=== PATIENT | female | born 2000 ===

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

== ENCOUNTER 2020-05-27 11:14 | Observation (INO) | payer OTHER, SELFPAY ==
[~2020-05-27] VITALS: Ht 162.6 cm; Wt 80.0 kg
--- NOTE | 2020-05-27 11:58 | NUR ---
DIRECT ADMIT PATIENT DIRECT ADMIT TO UNIT AT 1130. ALERT AND ORIENTED. ORIENTED PATIENT TO ROOM, CALL LIGHT, RAPID RESPONSE. PATIENT REPORTS ABD PAIN 4/10 AND INCREASED WITH MOVEMENT AND PALPATION. DENIES OTHER SYMPTOMS. NON-SLIP SOCKS APPLIED. PATIENT STATES HER MOTHER IS COMING AND BRINGING A FEW PERSONAL BELONGINGS. PATIENT NPO BUT NO ORDERS IN CHART AT THIS TIME.
[2020-05-27] MEDS ORDERED: NEXPLANON68 MG (12:29)
--- NOTE | 2020-05-27 18:39 | NUR ---
SHIFT SUMMARY PATIENT ADMITTED TODAY 05/27/20 FOR APPENDICITIS. PLAN FOR SURGERY IN AM 05/28/[address] MIRELES. PATIENT IS ALERT, ORIENTED, AND INDEPENDENT IN ROOM. IV FLUIDS RUNNING. SHE IS CLEAR LIQUID DIET AT THIS TIME AND NPO AFTER MIDNIGHT. SHE IS VOIDING WELL. SHE RATES HER PAIN 4-5/10 AND MANAGAGED WITH PRN TYLENOL. HER ABD IS SOFT AND TENDER ON THE LOWER RIGHT QUADRANT. SHE IS RESTING IN BED AT THIS TIME WITH MOTHER PRESENT IN ROOM.
[2020-05-27 18:59] LABS: Influenza A, PCR NEGATIVE (NEGATIVE); Influenza B, PCR NEGATIVE (NEGATIVE); Resp Syncytial Virus, PCR NEGATIVE (NEGATIVE); SARS-Cov-2 (COVID-19) PCR, MMC NEGATIVE (NEGATIVE)
[2020-05-28 04:35] LABS: BASOPHILS ABSOLUTE AUTO 0.04 K/mm3 (0.00-0.23); BASOPHILS PERCENT AUTO 1 % (0-2); EOSINOPHILS ABSOLUTE AUTO 0.24 K/mm3 (0.00-0.68); EOSINOPHILS PERCENT AUTO 4 % (0-6); Hemoglobin 12.2 g/dL (11.5-16.0); IMMATURE GRAN ABSOLUTE AUTO 0.01 K/mm3 (0.00-0.10); IMMATURE GRAN PERCENT AUTO 0 % (0-1); LYMPHOCYTES ABSOLUTE AUTO 2.47 K/mm3 (0.84-5.20); LYMPHOCYTES PERCENT AUTO 39 % (21-46); MONOCYTES ABSOLUTE AUTO 0.43 K/mm3 (0.16-1.47); MONOCYTES PERCENT AUTO 7 % (4-13); Mean Corpuscular HGB Conc 33.9 g/dL (31.5-36.5); Mean Corpuscular Volume 89 fL (80-100); NEUTROPHILS PERCENT AUTO 49 % (41-73); Platelet Count 179 K/mm3 (150-400); RDW Coefficient Variation 12.2 % (11.7-14.2); RDW Standard Deviation 39.9 fL (35.1-46.3); Red Blood Cell Count 4.07 M/mm3 (3.80-5.20); White Blood Cell Count 6.29 K/mm3 (4.00-11.30)
[2020-05-28 04:54] LABS: Alanine Aminotransfer (ALT/SGP 12 U/L (12-78); Albumin, Blood 3.3 g/dL (3.4-5.0); Alk Phos 59 U/L (50-136); Anion Gap 5 mmol/L (6-16); Aspartate Aminotrans (AST/SGOT 4 U/L (12-37); Blood Urea Nitrogen 6 mg/dL (8-24); Bun/Creatinine Ratio 7.4 (12.0-20.0); CO2, Blood 26 mmol/L (21-32); Calcium, Blood 8.6 mg/dL (8.5-10.1); Chloride, Blood 109 mmol/L (98-108); Creatinine, Blood 0.81 mg/dL (0.40-1.00); Globulin, Blood 3.3 g/dL (2.2-4.0); Glomerular Filtration Rate >60 (60-); Glucose, Blood 80 mg/dL (70-99); Potassium, Blood 3.8 mmol/L (3.5-5.5); Sodium, Blood 140 mmol/L (136-145); Total Protein, Blood 6.6 g/dL (6.4-8.2)
--- NOTE | 2020-05-28 05:40 | NUR ---
SHIFT SUMMARY NO ACUTE CHANGES OVERNIGHT. PT SLEPT GOOD T/O SHIFT. PAIN HAS BEEN MINIMAL 2-4/10 PAIN LEVEL. DENIES NAUSEA AND VOMITING. PT IS NPO. VSS. VOIDING WITHOUT DIFFICULTY. A0X4. CALL LIGHT WITHIN REACH. ANTICIPATING SURGERY THIS MORNING WITH DR. MIRELES. WILL PROVIDE REPORT TO ONCOMING AM NURSE.
--- NOTE | 2020-05-28 08:35 | NUR ---
LEFT FOR PRE-OP PATIENT ALERT, ORIENTED, AND INDEPENDENT IN ROOM. LEFT FOR PRE-OP VIA GURNEY AT 0820. SALINE LOCKED AND REPORTS PAIN 04/07.
--- NOTE | 2020-05-28 09:04 | NUR ---
Patient up to Ambulate independently. Gait steady. Bianka Paws warming gown applied. Surgical site prepped with 2% Chlorhexidine cloth wipe. History, Chart, Medications and Allergies reviewed before start of procedure.Lungs clear T/O to Auscultation. Patient confirms NPO status and agrees with scheduled surgery. PLACED PHONE UNDER THE BED IN BELONINGS BAG. PT SIGNED JEWELRY REFUSAL. UNABLE TO REMOVE LEFT EARRING, TAPED.
--- NOTE | 2020-05-28 09:09 | NUR ---
UP TO BATHROOM AT THIS TIME
--- NOTE | 2020-05-28 12:15 | NUR ---
RETURN FROM SURGERY PATIENT RETURNED TO ROOM AT 1120 ON GURNEY FROM RECOVERY. SHE WAS ALERT, ORIENTED, AND RATED HER PAIN 5/10. SHE HAD GOTTEN FENTANYL IN PACU FOR PAIN. SETTLED PATIENT IN BED, PLACED SCDS, PROVIDED ICE WATER, SALINE LOCKED. ABD SOFT AND TENDER. LAP INCISION X3 WNL. PATIENT DENIES NAUSEA. HEATING PAD PLACED TO ABD FOR COMFORT. TOLERATING SIPS OF WATER. MEDICATED WITH NORCO AND ZOFRAN. MOTHER PRESENT AT BEDSIDE.
--- NOTE | 2020-05-28 14:11 | NUR ---
ADMIT: 05/27/20 DISCHARGE: 05/28/20 DX: Acute Appendicitis CC: [email or web address] RADHA CALL: pt at home RESIDENCE: home CAREGIVER: self DX: conjunctivitis, appendicitis DME: none CCM: none HOME HEALTH: none SUMMARY: Admit: 05/27/20 05/28/20- Pt was admitted by Dr. Solorzano and was seen by Dr. Blanchard. She is an [employer] employee. Met with pt and asked if she would like to est. care with [employer]. She would and provided pt an application to fill out and turn into the clinic. Pt reports that overall she is doing well. Pt has been cleared by surgery for d/c They would like to follow up with their clinic in 2 weeks. -idalia
[2020-05-28] MEDS ORDERED: Norco 5-325 Ta1 EACH PO (15:46)
--- NOTE | 2020-05-28 16:24 | NUR ---
DISCHARGE SUMMARY PT ALERT, ORIENTED POST OP. TOLERATING FOOD AND WATER. PAIN CONTROLLED WITH PO PAIN MEDS. DENIES NAUSEA. ABD INCISIONS WNL. DISCHARGE ORDERS GIVEN BY MD. DISCHARGE EDUCATION PROVIDED ON RX, ACTIVITY, WOUND CARE, ACTIVITY, AND FOLLOW UP APPOINTMENTS. IV DC'D WNL. PATIENT LEFT UNIT AT 1620 VIA WHEELCHAIR WITH MOTHER FOR HOME.
== END 2020-05-28 16:20 | disposition home or self-care (01) ==
LOC: SURS 11:14
PROVIDERS: Family Medicine; Surgery; ADMIT Family Medicine
PROC: 0DTJ4ZZ Resection of Appendix, Percutaneous Endoscopic Approach (ICD-10-PCS; principal; 2020-05-28 10:00)
DX: K35.80 Unspecified acute appendicitis (principal); Z20.822 Contact with and (suspected) exposure to COVID-19; Z91.018 Allergy to other foods
CPT/HCPCS: 0241U; 36415; 80053; 81025; 85025; 88304; A9270; G0378; J1100; J1885; J2250; J2405; J2543; J2704; J3010; J7120

== ENCOUNTER → 2020-11-05 | Outpatient (CLI) | payer OTHER ==
[~2020-11-05] MED LIST: NEXPLANON68 MG; Norco 5-325 Ta1 EACH PO
[2020-11-06 10:10] LABS: SARS COV-2 IGG AB Positive (Negative); SARS COV-2 IGM AB Negative (Negative)
== END | disposition home or self-care (01) ==
LOC: LAB 15:12 → LAB SHORT 15:12
PROVIDERS: Family Medicine
DX: U07.1 COVID-19 (principal)
CPT/HCPCS: 86769

== ENCOUNTER → 2020-11-16 | Outpatient (CLI) | payer OTHER ==
[2020-11-16 16:15] LABS: Magnesium, Blood 2.3 mg/dL (1.6-2.4)
[2020-11-16 16:23] LABS: Thyroid Stimulating Hormone 1.28 uIU/mL (0.360-4.800)
== END | disposition home or self-care (01) ==
LOC: LAB 15:09 → LAB SHORT 15:09
PROVIDERS: Family Medicine
DX: R00.2 Palpitations (principal)
CPT/HCPCS: 83735; 84439; 84443; 84481

== ENCOUNTER → 2023-02-20 | Outpatient (CLI) | payer OTHER ==
[2023-02-20 19:01] LABS: BASOPHILS ABSOLUTE AUTO 0.06 K/mm3 (0.00-0.23); BASOPHILS PERCENT AUTO 1 % (0-2); EOSINOPHILS PERCENT AUTO 2 % (0-6); Hematocrit 40.9 % (33.0-51.0); Hemoglobin 13.8 g/dL (11.5-16.0); IMMATURE GRAN PERCENT AUTO 0 % (0-1); LYMPHOCYTES ABSOLUTE AUTO 1.69 K/mm3 (0.84-5.20); LYMPHOCYTES PERCENT AUTO 30 % (21-46); MONOCYTES ABSOLUTE AUTO 0.33 K/mm3 (0.16-1.47); MONOCYTES PERCENT AUTO 6 % (4-13); Mean Corpuscular HGB 30.2 pg (26.0-34.0); Mean Corpuscular HGB Conc 33.7 g/dL (31.5-36.5); Mean Corpuscular Volume 90 fL (80-100); NEUTROPHILS ABSOLUTE AUTO 3.48 K/mm3 (1.96-9.15); NEUTROPHILS PERCENT AUTO 61 % (41-73); Platelet Count 220 K/mm3 (150-400); RDW Coefficient Variation 12.2 % (11.7-14.2); RDW Standard Deviation 39.9 fL (35.1-46.3); Red Blood Cell Count 4.57 M/mm3 (3.80-5.20); White Blood Cell Count 5.66 K/mm3 (4.00-11.30)
[2023-02-20 21:10] LABS: Bun/Creatinine Ratio 15.8 (12.0-20.0); Calcium, Blood 8.9 mg/dL (8.5-10.1); Creatinine, Blood 0.76 mg/dL (0.40-1.00); Percent Saturation 28.2 % (15.0-50.0); Potassium, Blood 3.9 mmol/L (3.5-5.5)
== END | disposition home or self-care (01) ==
LOC: LAB SHORT 17:28 → LAB 17:28
PROVIDERS: Family Medicine
DX: R00.2 Palpitations (principal)
CPT/HCPCS: 80048; 82728; 83540; 83550; 83735; 85025